=== PATIENT | female | born 1940 | race Caucasian/White ===

== ENCOUNTER 2020-08-08 12:46 | Inpatient (IN) | payer MEDICARE, OTHER ==
[~2020-08-08] VITALS: Ht 162.6 cm; Wt 105.9 kg
--- NOTE | 2020-08-08 13:11 | NUR ---
AUDREY 89 FROM 6 PACK BOARD AND CARE C/O ABDOMINAL PAIN STARTED YESTERDAY. ALERT AND ORIENTED. NO SOB NOTED, FAMILY AT BEDSIDE. WILL CONTINUE TO MONITOR
[2020-08-08] MEDS ORDERED: DILT180C93 PO (13:32)
[2020-08-08] MEDS ORDERED: ATEN25TA PO (13:32)
[2020-08-08] MEDS ORDERED: FURO20TA4 PO (13:32)
[2020-08-08] MEDS ORDERED: MIRT-90 PO (13:32)
[2020-08-08 13:35] LABS: BASOPHILS # (AUTO) 0.1 K/uL (0.0-0.2); BASOPHILS % (AUTO) 0.9 % (0.0-2.0); EOSINOPHILS % (AUTO) 0.2 % (0.0-6.0); HEMATOCRIT 38 % (33-45); HEMOGLOBIN 12.6 g/dL (11.5-14.8); LYMPHOCYTES # (AUTO) 0.8 K/uL (0.8-4.8); MEAN CORPUSCULAR HGB CONC 33 g/dl (31.0-36.0); MEAN CORPUSCULAR VOLUME 95 fL (82-100); MONOCYTES # (AUTO) 1.2 K/uL (0.1-1.30); MONOCYTES % (AUTO) 11.1 % (2.0-12.0); NEUTROPHILS # (AUTO) 8.8 K/uL (1.8-8.9); NEUTROPHILS % (AUTO) 80.8 % (43.0-81.0); PLATELET COUNT (AUTO) 211 K/uL (150-450); RED BLOOD CELL COUNT(AUTO) 4.01 MIL/uL (4.0-5.2); WHITE BLOOD COUNT (AUTO) 10.9 K/uL (4.3-11.0)
--- NOTE | 2020-08-08 13:35 | NUR ---
PIV INSERTED IN RAC G#22, GOOD BLOOD RETURN NOTED, INTACT, PATENT AND FLUSHIMG WELL. WILL CONTINUE TO MONITOR
[2020-08-08 13:54] LABS: ALANINE AMINOTRANSFERASE 21 U/L (12-78); ALBUMIN 2.1 g/dL (3.4-5.0); ALKALINE PHOSPHATASE 135 U/L (46-116); ASPARTATE AMINOTRANSFERASE 63 U/L (15-37); BILIRUBIN,DIRECT 0.3 mg/dL (0.0-0.2); BILIRUBIN,TOTAL 0.7 mg/dL (0.2-1.0); CALCIUM, SERUM 9.3 mg/dL (8.5-10.1); CARBON DIOXIDE 23 mmol/L (21-32); CHLORIDE 104 mmol/L (98-107); CREATININE 1.7 mg/dL (0.6-1.3); GLUCOSE 136 mg/dL (74-106); LIPASE 51 U/L (73-393); POTASSIUM 3.8 mmol/L (3.5-5.1); SODIUM SERUM 138 mmol/L (136-145); TOTAL PROTEIN, SERUM 7.2 g/dL (6.4-8.2); UREA NITROGEN, BLOOD 22 mg/dL (7-18)
[2020-08-08] MEDS ORDERED: CHOL200010 PO (14:35)
[2020-08-08] MEDS ORDERED: CHELATED ZINC PO (14:35)
[2020-08-08] MEDS ORDERED: LEVO500T90 PO (14:35)
[2020-08-08] MEDS ORDERED: LACT1CAP61 PO (14:35)
[2020-08-08] MEDS ORDERED: ASPI-1169 PO (14:35)
[2020-08-08] MEDS ORDERED: MULT-1196 PO (14:35)
--- NOTE | 2020-08-08 14:55 | NUR ---
MOVE SHEET SUBMITTED AND CALLED FOR BED.
[2020-08-08] MEDS ORDERED: CEFTRIAXONE 1 G in IV D5W 50 ML IV ONE (15:00)
[2020-08-08] MEDS ORDERED: CEFTRIAXONE 1GM BAG (ER ONLY) 50 ML IV ONE (15:04)
--- NOTE | 2020-08-08 15:20 | NUR ---
URINE COLLECTED AND SEND TO LAB
[2020-08-08 15:39] LABS: BILIRUBIN,URINE SMALL (NEGATIVE); COLOR,URINE YELLOW (YELLOW); LEUKOCYTE ESTERASE ,URINE NEGATIVE (NEGATIVE); NITRITE, URINE NEGATIVE (NEGATIVE); PROTEIN,URINE 100 mg/dl (NEGATIVE); UGLUCOSE NEGATIVE (NEGATIVE); UROBILINOGEN,URINE 0.2 EU/dL (0.2)
--- NOTE | 2020-08-08 15:44 | NUR ---
COVID SWAB DONE AND SEND TO LAB
[2020-08-08 15:45] LABS: BACTERIA,URINE 2+ /HPF (None Seen); URINE AMORPHOUS URATE Many /HPF (None Seen)
[2020-08-08] MEDS ORDERED: ONDANSETRON HCL/PF 4 MG/2 ML VIAL ONE (17:10)
[2020-08-08] MEDS ORDERED: MORPHINE SULFATE INJ 4 MG/ML DISP.SYRIN ONE (17:11)
[2020-08-08] MEDS ORDERED: MORPHINE SULFATE INJ 2 MG/ML DISP.SYRIN IV ONE (17:30)
[2020-08-08] MEDS ORDERED: ONDANSETRON HCL/PF 4 MG/2 ML VIAL IV ONE (17:30)
--- NOTE | 2020-08-08 17:47 | NUR ---
VITAL SIGNS BP 124/68, HR 115, RR 17, T 97.6, SPO2 96%. MORPHINE AND ZOFRAN ADMINISTERED
--- NOTE | 2020-08-08 17:48 | NUR ---
PATIENT C/O ACHING THROBBING PAIN OF 10/10. PT NOTED MOANING AND GRIMACING. PER PATIENT REQUEST MORPHINE 4MG IV ONCE AND ZOFRAN 4MG IV ONCE ADMINISTERED PER MD'S ORDER. WILL CONTINUE TO MONITOR
[2020-08-08] MEDS ORDERED: ACETAMINOPHEN 325 MG TABLET PO PRN (18:30)
[2020-08-08] MEDS ORDERED: ONDANSETRON HCL/PF 4 MG/2 ML VIAL IVP PRN (18:30)
[2020-08-08] MEDS ORDERED: IV 1/2NS 1000 ML 1,000 ML IV PRN (18:30)
[2020-08-08] MEDS ORDERED: Z GUARD REMEDY 2 OZ OINT TP PRN (18:30)
[2020-08-08] MEDS ORDERED: MAG HYDROX/AL HYDROX/SIMETH 30 ML UDC PO PRN (18:30)
[2020-08-08] MEDS ORDERED: MAGNESIUM HYDROXIDE 30 ML UDC PO PRN (18:30)
[2020-08-08] MEDS ORDERED: MORPHINE SULFATE INJ 2 MG/ML DISP.SYRIN IV PRN (18:30)
--- NOTE | 2020-08-08 18:32 | NUR ---
GOT BED 312-1 AFTER CHANGE OF SHIFT.
--- NOTE | 2020-08-08 19:00 | NUR ---
PT PEDNDING TRANSFER TO [facility] ROOM 312, REPORT CALLED IN TO CARLOS DORADO.
--- NOTE | 2020-08-08 19:21 | NUR ---
PT TRANSPORTED BY JEANNA TO [facility], ROOM 312 WITH ACLS PROTOCOL IN PLACE AT THIS TIME. DAUGHTER AT PATIENT'S SIDE
--- NOTE | 2020-08-08 19:45 | NUR ---
MS CASE FINISHER NOTES PATIENT ADMITTED WITH DAUGHTER AT BEDSIDE. PATIENT RESPONDS TO NAME, ONLY MOANS IN PAIN AND SAYS SHE DOESN'T FEEL GOOD. PER DAUGHTER, PT HAS HISTORY OF DEMENTIA BUT NORMALLY MORE ALERT/ORIENTED. PATIENT STABLE ON ROOM AIR, NO S/S OF DISTRESS OR SHORTNESS OF BREATH NOTED. RIGHT AC #20G IV ACCESS INTACT AND FLUSHING WELL. PATIENT SKIN IS INTACT, BRUISING ON BILATERAL ARMS, PICTURES TAKEN AND PLACED IN CHART. PT'S BELONGINGS ACCOUNTED FOR AND DOCUMENTED. PT IS INCONTINENT AND ON BED REST. PER DAUGHTER, PT HAS AN ADVANCED DIRECTIVE, SHE WILL LOOK FOR IT AND BRING IT, IN THE MEANTIME PT WISHES TO BE FULL CODE, BUT DO NOT INTUBATE. ORIENTED PATIENT AND DAUGHTER TO ROOM AND HOW TO USE CALL LIGHT. SAFETY MEASURES IN PLACE, CALL LIGHT AND TABLE WITHIN REACH, BED ALARM ON, SIDE RAILS UP X 3. WILL CONTINUE TO MONITOR
[2020-08-08 20:00] VITALS: BP 116/64
--- NOTE | 2020-08-08 20:30 | NUR ---
MS RN NOTES DR. ZIMMER PRESENT AT BEDSIDE SPEAKING TO PATIENT'S DAUGHTER WITH NEW ORDER FOR DILAUDID 1 MG PRN Q3H, ORDER READ BACK, VERIFIED AND CARRIED OUT.
[2020-08-08] MEDS: HYDROMORPHONE 1 MG/1 ML DISP.SYRIN IV PRN (20:40)
[2020-08-08] MEDS ORDERED: MEROPENEM 500 MG in IV NS 0.9% 50 ML IV ONE (21:00)
[2020-08-09] VITALS (40 sets, daily range): BP systolic 37–168; BP diastolic 12–118
[2020-08-09] MEDS: HYDROMORPHONE 1 MG/1 ML DISP.SYRIN IV PRN (02:17)
--- NOTE | 2020-08-09 03:00 | NUR ---
MS RN NOTES RAPID RESPONSE CALLED D/T PATIENT HAVING A. FIB WITH RVR, BP: 96/78, HR: 154, O2: 88%, PATIENT PLACED ON 2L OXYGEN VIA NASAL CANNULA (SPO2 INCREASED TO 95%), BLOOD SUGAR 154, PATIENT MORE LETHARGIC THAN EARLIER IN THE SHIFT. DR. BAILEE MOSES. WILL CONTINUE TO MONITOR
--- NOTE | 2020-08-09 03:25 | NUR ---
MS RN NOTES SPOKE TO DR. ZIMMER WITH ORDERS TO TRANSFER PATIENT TO ICU AND TO CALL MARRIAGE AND FAMILY THERAPIST ONCE PATIENT ARRIVES ON FLOOR AND START AMIODARONE DRIP, ORDERS READ BACK AND CARRIED OUT.
[2020-08-09] MEDS ORDERED: AMIODARONE 150 MG in IV D5W 100 ML IV ONE (03:30)
--- NOTE | 2020-08-09 03:30 | NUR ---
MS RN NOTES PATIENT TRANSFERRED TO ICU ROOM 253 VIA ACLS PROTOCOL
--- NOTE | 2020-08-09 03:35 | NUR ---
RECIEVED PT FROM [facility] BED ON O2 VIA NC @ 4L SPO2 95% PT RESPONDING ONLY TO PAIN STIMULI VIA MOANING, HOOKED TO TELE MONITOR WITH READING AFIB WITH RVR 140'S BP IS 62/47 RR 14 TEMP 100.8, WITH ONGOING ORDER FOR AMIODARONE DRIP, WILL START NOW, SAFETY MEASURE MAINTAINED BED ON LOWEST POSITION AND LOCKED SIDE RAILS UP X2 CALL LIGHT WITHIN REACH WILL REFER TO MD DUE TO LOW BP
[2020-08-09] MEDS ORDERED: AMIODARONE 150 MG/3 ML VIAL IV ONE (03:38)
[2020-08-09] MEDS ORDERED: AMIODARONE 450 MG in IV D5W 241 ML IV PRN (03:40)
--- NOTE | 2020-08-09 03:40 | NUR ---
CALLED DR. ZIMMER AND INFORMED HIM ABOUT THE BP OF THE PT WITH OTHER TO GIVE 500ML NS BOLUS NOW X1 AND START SARAHI TO TITRATE PER PROTOCOL AND GIVE BICARB IVPUSH NOTED AND CARRIED OUT
--- NOTE | 2020-08-09 03:55 | NUR ---
MS RN NOTES SPOKE TO DAUGHTER GET TO INFORM HER THAT PATIENT WAS TRANSFERRED TO ICU ROOM 253
[2020-08-09 04:12] LABS: ABG BASE EXCESS -12.4 mmol/L; ABG OXYGEN SATURATION 94.3 % (92.0-98.5); ABG PCO2 37.7 mmHg (35.0-45.0); ABG PH 7.208 (7.350-7.450); ABG PO2 81.6 mmHg (75.0-100.0); AaDO2 131.4 mmHg; COHb 1.2 % (0.5-1.5); O2Hb 93.2 % (94.0-97.0); SITE, ABG Right Radial; VENT MODE, BG nasal cannula
[2020-08-09] MEDS ORDERED: PHENYLEPHRINE 10 MG/ML VIAL ONE (04:17)
--- NOTE | 2020-08-09 04:25 | NUR ---
CALLED FAMILY AND VERIFY THE CODE STATUS OF THE PT, PER PT DAUGHTER PT IS DNR/DNI, INFORMED ALSO THE FAMILY WITH CURRENT CONDITION OF THE PT. VERIFY IT WITH CHARGE NURSE ED
[2020-08-09] MEDS ORDERED: PHENYLEPHRINE 50 MG in IV NS 0.9% 245 ML IV PRN (04:30)
[2020-08-09] MEDS ORDERED: Sodium Bicarbonate 50 MEQ in IV NS 0.9% 1,000 ML IV PRN ×2 (04:30→05:00)
[2020-08-09] MEDS ORDERED: SODIUM BICARBONATE SYR 50 MEQ/50 ML DISP.SYRIN IV ONE (04:30)
[2020-08-09] MEDS ORDERED: Sodium Bicarbonate 50 MEQ in IV 1/2NS 1000 ML 1,000 ML IV PRN (05:00)
--- NOTE | 2020-08-09 05:00 | NUR ---
CALL DR ZIMMER AND INFORMED THAT PT IS STILL LOW DESPITE GETTING A SARAHI, AND PER PROTOCOL WE CAN ONLY TITRATE EVERY 15 MINS HE ORDER OKAY TO TITRATE SARAHI EVERY 5 MINS TO MAINTAIN SBP >90, AND HE ALSO TOLD ME TO CALL THE PUBLISHING SPECIALIST GUEST SERVICES TO REFER THE PT,EVEN THE PT IS DNR/DNI NOTED AND CARRIED OUT
[2020-08-09] MEDS ORDERED: NOREPINEPHRINE 4 MG/4 ML AMPUL IV ONE (05:19)
--- NOTE | 2020-08-09 05:35 | NUR ---
REFER PT TO DR MI INFORMED HIM THAT THE PT IS ON AMIODARONE DRIP RIGHT NOW WITH TELE READING OF AFIB WITH RVR 130'S AND PT IS ON SARAHI FOR BLOOD PRESSURE SUPPORT AND PT IS DNR DNI, WITH NO NEW ORDER MADE
[2020-08-09 05:45] LABS: BASOPHILS # (AUTO) 0.1 K/uL (0.0-0.2); BASOPHILS % (AUTO) 0.8 % (0.0-2.0); EOSINOPHILS % (AUTO) 0.1 % (0.0-6.0); HEMATOCRIT 40 % (33-45); LYMPHOCYTES # (AUTO) 1.1 K/uL (0.8-4.8); LYMPHOCYTES % (AUTO) 9.4 % (20.0-44.0); MEAN CORPUSCULAR HGB CONC 32 g/dl (31.0-36.0); MEAN CORPUSCULAR VOLUME 96 fL (82-100); MONOCYTES # (AUTO) 1.5 K/uL (0.1-1.30); MONOCYTES % (AUTO) 12.7 % (2.0-12.0); NEUTROPHILS # (AUTO) 9.2 K/uL (1.8-8.9); PLATELET COUNT (AUTO) 248 K/uL (150-450); RED BLOOD CELL COUNT(AUTO) 4.19 MIL/uL (4.0-5.2)
[2020-08-09] MEDS ORDERED: PHENYLEPHRINE 100 MG in IV NS 0.9% 240 ML IV PRN (06:30)
[2020-08-09] MEDS ORDERED: NOREPINEPHRINE 32 MG in IV NS 0.9% 218 ML IV PRN (06:30)
[2020-08-09] MEDS ORDERED: IV NS 0.9% 500 ML IV ONE (07:30)
[2020-08-09] MEDS ORDERED: HYDROCORTISONE SOD SUCCINATE 100 MG/2 ML VIAL IV SCH (08:00)
[2020-08-09] MEDS ORDERED: IV NS 0.9% 1,000 ML IV PRN (08:00)
[2020-08-09 08:10] LABS: ALANINE AMINOTRANSFERASE 19 U/L (12-78); ALKALINE PHOSPHATASE 134 U/L (46-116); ASPARTATE AMINOTRANSFERASE 117 U/L (15-37); BILIRUBIN,TOTAL 0.7 mg/dL (0.2-1.0); CALCIUM, SERUM 8.6 mg/dL (8.5-10.1); CARBON DIOXIDE 21 mmol/L (21-32); CHLORIDE 104 mmol/L (98-107); CREATININE 2.7 mg/dL (0.6-1.3); GLUCOSE 139 mg/dL (74-106); MAGNESIUM 2.1 mg/dL (1.8-2.4); PHOSPHORUS 4.7 mg/dL (2.5-4.9); POTASSIUM 5.5 mmol/L (3.5-5.1); SODIUM SERUM 140 mmol/L (136-145); TOTAL PROTEIN, SERUM 6.9 g/dL (6.4-8.2); UREA NITROGEN, BLOOD 27 mg/dL (7-18)
[2020-08-09 08:37] LABS: CHOLESTEROL 103 mg/dL (<200); HDL CHOLESTEROL 10 mg/dL (40-60); LDL 50 mg/dL (0-99); TRIGLYCERIDES 247 mg/dL (30-150)
[2020-08-09] MEDS ORDERED: Sodium Bicarbonate 50 MEQ in IV 1/2NS 1000 ML 1,000 ML IV SCH ×2 (08:39→17:00)
[2020-08-09] MEDS ORDERED: MEROPENEM 500 MG in IV NS 0.9% 100 ML IV SCH (09:00)
[2020-08-09] MEDS ORDERED: Sodium Bicarbonate 100 MEQ in IV 1/2NS 1000 ML 1,000 ML IV SCH (09:30)
[2020-08-09] MEDS ORDERED: FUROSEMIDE 20 MG/2 ML VIAL IV ONE (09:30)
[2020-08-09 09:58] LABS: THYROID STIMULATING HORMONE 4.683 uIU/mL (0.358-3.74)
--- NOTE | 2020-08-09 10:06 | NUR ---
NO SIGNS OF LIFE NOTED AT THIS TIME, NO PULSES NOTED, NO RESPIRATIONS NOTED, NO HEART BEAT NOTED ON TELEMETRY OR BY AUSCULTATION. PT'S DAUGHTER AT BEDSIDE. TIME OF 1008.
--- NOTE | 2020-08-09 10:06 | NUR ---
RN NOTE PATIENT DNR/DNI. FOUND ASYSTOLIC, APNEIC, AREFLEXIVE, PUPILS FIXED AND DILATED. PRONOUNCED 1006 WITH DAUGHTER AT BEDSIDE.
--- NOTE | 2020-08-09 11:07 | NUR ---
RN NOTE MORTUARY PROCESS EXPLAINED TO FAMILY. PATIENT BELONGINGS SIGNED FOR.
--- NOTE | 2020-08-09 11:45 | NUR ---
RN NOTE POST MORTEM CARES DONE AND PATIENT WAS BROUGHT TO THE [facility] [place].
[2020-08-09] MEDS ORDERED: DIGOXIN INJ 0.5 MG/2 ML AMPUL IV SCH (12:00)
== END 2020-08-09 10:06 | DRG 871 ==
LOC: ER 12:50 → MED 18:35 → ICU 08-09 03:24
PROVIDERS: ADMIT Internal Medicine; ATTEND Internal Medicine
PROC: 02HV33Z Insertion of Infusion Device into Superior Vena Cava, Percutaneous Approach (ICD-10-PCS; principal; 2020-08-09)
PROC: B548ZZA Ultrasonography of Superior Vena Cava, Guidance (ICD-10-PCS; 2020-08-09)
DX: A41.9 Sepsis, unspecified organism (principal); K55.059 Acute (reversible) ischemia of intestine, part and extent unspecified; N17.0 Acute kidney failure with tubular necrosis; R65.21 Severe sepsis with septic shock; J96.90 Respiratory failure, unspecified, unspecified whether with hypoxia or hypercapnia; D68.59 Other primary thrombophilia; E87.2 Acidosis; I13.0 Hypertensive heart and chronic kidney disease with heart failure and stage 1 through stage 4 chronic kidney disease, or unspecified chronic kidney disease; I50.32 Chronic diastolic (congestive) heart failure; N39.0 Urinary tract infection, site not specified; K57.92 Diverticulitis of intestine, part unspecified, without perforation or abscess without bleeding; G93.40 Encephalopathy, unspecified; Z66 Do not resuscitate; E66.01 Morbid (severe) obesity due to excess calories; F03.90 Unspecified dementia, unspecified severity, without behavioral disturbance, psychotic disturbance, mood disturbance, and anxiety; I48.91 Unspecified atrial fibrillation; Z79.82 Long term (current) use of aspirin; Z79.899 Other long term (current) drug therapy; Z90.49 Acquired absence of other specified parts of digestive tract; N18.9 Chronic kidney disease, unspecified; E87.5 Hyperkalemia; N28.1 Cyst of kidney, acquired; K44.9 Diaphragmatic hernia without obstruction or gangrene; I70.0 Atherosclerosis of aorta
CPT/HCPCS: 36415; 36569; 36600; 71045-TC; 80048-TC; 80053-TC; 80061-TC; 80076-TC; 81001; 82533; 82803-TC; 82962-TC; 83605-TC; 83690-TC; 83735-TC; 84100-TC; 84439-TC; 84443-TC; 84484-TC; 85025-TC; 87040-TC; 87081-TC; 87086-TC; C9803; G0378; J0282; J0696; J1170; J1720; J2185; J2270; J2370; J2405; J3490; J7030; J7040; J7050; J7060